=== PATIENT | male | born 1960 | race Caucasian/White ===

== ENCOUNTER → 2024-02-08 19:29 | Outpatient (REF) | payer OTHER, SELFPAY | LOC: MRI 19:29 | PROVIDERS: ATTENDING PHYSICIAN Optometrist | DX: H53.2 Diplopia (principal) | CPT/HCPCS: 70553; A9575 ==

== ENCOUNTER → 2024-06-03 08:30 | Outpatient (REF) | payer OTHER, SELFPAY | LOC: MRI 3T 08:30 | PROVIDERS: ATTENDING PHYSICIAN Psychiatry & Neurology Neurology; FAMILY PHYSICIAN Internal Medicine | DX: H53.2 Diplopia (principal) | CPT/HCPCS: 72157; A9575 ==

== ENCOUNTER → 2024-06-04 10:28 | Outpatient (REF) | payer OTHER, SELFPAY | LOC: MRI 3T 10:28 | PROVIDERS: ATTENDING PHYSICIAN Psychiatry & Neurology Neurology; FAMILY PHYSICIAN Internal Medicine | DX: H53.2 Diplopia (principal) | CPT/HCPCS: 72156; A9575 ==